=== PATIENT | female | born 1980 | race Caucasian/White ===

== ENCOUNTER → 2020-06-27 | Outpatient (CLI) | payer BC, OTHER | LOC: CT 11:41 | DX: R31.29 Other microscopic hematuria (principal); N83.201 Unspecified ovarian cyst, right side | CPT/HCPCS: Q9967 ==

== ENCOUNTER → 2020-09-13 | Day surgery (SDC) | payer BC, OTHER | END | disposition home or self-care (01) | LOC: OR 11:30 | DX: R31.29 Other microscopic hematuria (principal); Z87.440 Personal history of urinary (tract) infections; Z87.891 Personal history of nicotine dependence; Z20.822 Contact with and (suspected) exposure to COVID-19; Z98.890 Other specified postprocedural states; Z88.0 Allergy status to penicillin; Z88.1 Allergy status to other antibiotic agents; Z88.2 Allergy status to sulfonamides | CPT/HCPCS: 87635; J7040 ==

== ENCOUNTER 2020-11-06 15:41 | Emergency (ER) | payer BC, OTHER ==
[2020-11-06 17:50] LABS: HEMOGLOBIN 12.9 gm/dl (12.3-15.3); RED BLOOD COUNT 4.17 M/UL (4.00-5.10); WHITE BLOOD COUNT 8.4 K/UL (4.5-11.0)
[2020-11-06 18:39] LABS: BUN/CREATININE RATIO 12 (0-10)
== END 2020-11-06 22:00 | disposition home or self-care (01) ==
LOC: ER1 15:41
PROVIDERS: Emergency Medicine
DX: N83.201 Unspecified ovarian cyst, right side (principal); R06.00 Dyspnea, unspecified
CPT/HCPCS: 71045; 80053; 81001; 82550; 82553; 83874; 84484; 84703; 85025; 85379; 87086; 99285; Q9967

== ENCOUNTER → 2020-11-28 | Outpatient (CLI) | payer BC, OTHER | LOC: HEART 5 15:31 | DX: R06.02 Shortness of breath (principal) | CPT/HCPCS: 94060 ==

== ENCOUNTER → 2020-12-21 | Outpatient (CLI) | payer BC, OTHER | LOC: NM 08:41 | DX: R10.13 Epigastric pain (principal) | CPT/HCPCS: 78264; A9541 ==

== ENCOUNTER → 2021-02-07 | Outpatient (CLI) | payer BC | LOC: HEART 5 15:00 | DX: R00.2 Palpitations (principal); R00.0 Tachycardia, unspecified | CPT/HCPCS: 93306 ==